=== PATIENT | male | born 1935 | race Caucasian/White ===

== ENCOUNTER 2018-01-05 11:02 | Day surgery (SDC) | payer MEDICARE, OTHER ==
[2018-01-05] MEDS ORDERED: Sodium Chloride 0.9% 10 ML Syringe FLUSH PRN (11:15)
[2018-01-05] MEDS ORDERED: Lactated Ringers 1,000 ML IV SCH (11:15)
[2018-01-05] MEDS ORDERED: Midazolam 1 MG/ML 2 ML SDV ONE ×2 (13:06→13:11)
[2018-01-05] MEDS ORDERED: Propofol 200 MG/20 ML SDV ONE ×2 (13:07→13:11)
--- NOTE | 2018-01-05 13:08 | PCM.PN ---
- General Info Date of Service: 01/05/18 - Review of Systems Systems Review Comment:: 82-year-old male with history of colon polyps referred for surveillance colonoscopy. He states his bowels have been working well recently.He denies any recent rectal bleeding or change in bowel pattern. He is medically stable to proceed today. His recent history and physical is reviewed and no significant changes are noted. I discussed the proposed colonoscopy with the patient. He understands indicationsand agrees to proceed accepting risks. - Patient Data Vitals - Most Recent: Last Vital Signs Temp 97.9 F 01/05/18 11:57 Pulse 68 01/05/18 11:57 Resp 20 01/05/18 11:57 BP 162/76 H 01/05/18 11:57 Pulse Ox 96 01/05/18 11:57 Weight - Most Recent: 88.451 kg Lab Results Last 24 Hours: Laboratory Results - last 24 hr 01/05/18 Range/Units 11:52 POC Glucose 161 H (65-110) mg/dl Med Orders - Current: Current Medications Lactated Ringer's (Ringers, Lactated) 1,000 mls @ 125 mls/hr IV ASDIRECTED JULIO Last Admin: 01/05/18 12:19 Dose: 125 mls/hr Sodium Chloride (Saline Flush) 10 ml FLUSH ASDIRECTED PRN PRN Reason: Keep Vein Open - Problem List Review Problem List Initiated/Reviewed/Updated: Yes - My Orders Last 24 Hours: My Active Orders 01/05/18 11:15 Patient Status [ADT] Routine Blood Glucose Check, Bedside [RC] ONETIME Peripheral IV Care [RC] . DIRECTED Verify Patient Consent Obtain [RC] ASDIRECTED Lactated Ringers [Ringers, Lactated] 1,000 ml IV ASDIRECTED Sodium Chloride 0.9% [Saline Flush] 10 ml FLUSH ASDIRECTED PRN Peripheral IV Insertion Adult [OM.PC] Routine - Assessment Assessment:: history of colon polyps - Plan Plan:: Colonoscopy
--- NOTE | 2018-01-05 13:51 | PCM.OPNOTE ---
- General Post-Op/Procedure Note Date of Surgery/Procedure: 01/05/18 Operative Procedure(s): Colonoscopy with Polypectomy Findings: Small right sided colon polyps Moderate Sigmoid Diverticulosis Moderate sized hemorrhoids Pre Op Diagnosis: History of colon polyps Post-Op Diagnosis: Colon Polyps. Diverticulosis. Hemorrhoids Anesthesia Technique: MAC Primary Surgeon: Natalio Corbin Pathology: Colon Polyps Output, Urine Amount: 0 EBL in mLs: 0 Complications: None Condition: Good Free Text/Narrative:: Intake & Output 01/04/18 01/05/18 01/05/18 22:59 06:59 14:59 Intake Total 600 Balance 600
[2018-01-05 17:46] VITALS: BP 135/65
--- NOTE | 2018-01-06 07:45 | OR ---
Date of Procedure: 01/05/2018 PREOPERATIVE DIAGNOSIS: History of colon polyps. POSTOPERATIVE DIAGNOSES: Colon polyps, diverticulosis, and hemorrhoids. OPERATIONS PERFORMED: Colonoscopy with polypectomy. INDICATIONS FOR SURGERY: This 82-year-old male comes for surveillance colonoscopy. He has a history of colon polyps in the past. FINDINGS: Two small polyps were noted in the right side of the colon today. There was a 6-mm semi-pedunculated polyp in the cecum and a 5-mm sessile polyp in the distal ascending colon. The patient also has a moderate degree of diverticulosis in the sigmoid colon, which does not appear to be acutely inflamed. The patient also has a [id number] size external and internal hemorrhoids noted. DESCRIPTION OF PROCEDURE: The patient was taken to the operating room. He was given intravenous sedation, and with him in the left lateral decubitus position, digital rectal exam was performed showing no rectal masses. The Olympus colonoscope was inserted into the rectum. Retroflexed examination of the rectal canal was performed. The scope was then carefully advanced under direct visualization through the entire length of the colon until the cecum was reached. Cecal acquisition was confirmed by noting the normal internal cecal anatomy and noting the light to transilluminate the abdominal wall in the right lower quadrant. In the cecum just above the ileocecal valve, the above- described polyp was identified, it was removed with a cautery snare and retrieved into a polyp trap. On withdrawal of the scope, additional cluster of 2 polyps was noted in the distal ascending colon. The one of these was removed with a cautery snare and the other was destroyed with the hyfrecator. The examination was continued and no other polyps were noted. After the colon had been completely examined and with no sign of any complication, the scope was removed and the patient was then awakened and taken from the operating room in satisfactory condition. ESTIMATED BLOOD LOSS: Zero. COMPLICATIONS: None. PROGNOSIS: Good. NINA Corbin MD /[id number]
== END 2018-01-05 15:32 | disposition home or self-care (01) ==
LOC: LL.SDS 11:02
PROVIDERS: ATTEND Surgery
DX: Z12.11 Encounter for screening for malignant neoplasm of colon (principal); D12.0 Benign neoplasm of cecum; D12.2 Benign neoplasm of ascending colon; K57.30 Diverticulosis of large intestine without perforation or abscess without bleeding; K64.8 Other hemorrhoids; K64.4 Residual hemorrhoidal skin tags; E11.42 Type 2 diabetes mellitus with diabetic polyneuropathy; I10 Essential (primary) hypertension; K21.9 Gastro-esophageal reflux disease without esophagitis; Z86.010 Personal history of colon polyps; Z87.891 Personal history of nicotine dependence; Z79.4 Long term (current) use of insulin; Z88.6 Allergy status to analgesic agent
CPT/HCPCS: 45385; 45388; 82962; J2250; J2704; J7120

== ENCOUNTER 2022-06-03 07:36 | Day surgery (SDC) | payer MEDICARE, OTHER ==
[~2022-06-03 07:36] MED LIST: Midazolam 1 MG/ML 2 ML SDV ONE; Propofol 200 MG/20 ML SDV ONE
[2022-06-03] MEDS ORDERED: Lactated Ringers 1,000 ML IV SCH (08:00)
[2022-06-03] MEDS ORDERED: Sodium Chloride 0.9% 10 ML Syringe FLUSH PRN (08:00)
[2022-06-03 10:40] VITALS: BP 160/58; PULSE 48
== END 2022-06-03 11:15 | disposition home or self-care (01) ==
LOC: LL.SDS 07:36
PROVIDERS: ATTEND Surgery
DX: Z12.11 Encounter for screening for malignant neoplasm of colon (principal); D12.2 Benign neoplasm of ascending colon; D12.0 Benign neoplasm of cecum; D12.4 Benign neoplasm of descending colon; D12.3 Benign neoplasm of transverse colon; D12.5 Benign neoplasm of sigmoid colon; K57.30 Diverticulosis of large intestine without perforation or abscess without bleeding; I10 Essential (primary) hypertension; D64.9 Anemia, unspecified; L82.1 Other seborrheic keratosis; I25.119 Atherosclerotic heart disease of native coronary artery with unspecified angina pectoris; E78.00 Pure hypercholesterolemia, unspecified; E78.1 Pure hyperglyceridemia; E11.42 Type 2 diabetes mellitus with diabetic polyneuropathy; N40.0 Benign prostatic hyperplasia without lower urinary tract symptoms; K52.9 Noninfective gastroenteritis and colitis, unspecified; Z98.890 Other specified postprocedural states; Z90.49 Acquired absence of other specified parts of digestive tract; Z87.891 Personal history of nicotine dependence; Z86.010 Personal history of colon polyps; Z87.19 Personal history of other diseases of the digestive system; Z79.4 Long term (current) use of insulin; Z88.6 Allergy status to analgesic agent; Z88.8 Allergy status to other drugs, medicaments and biological substances; Z88.5 Allergy status to narcotic agent
CPT/HCPCS: 82947; J2250; J2704; J7120

== ENCOUNTER 2024-06-08 00:16 | Emergency (ER) | payer MEDICARE, OTHER ==
[2024-06-08 00:41] LABS: BASOPHILS ABSOLUTE AUTO 0.05 K/uL (0.00-0.20); BASOPHILS PERCENT AUTO 0.8 % (0.0-2.0); EOSINOPHILS PERCENT AUTO 1.6 % (0.0-5.0); HEMATOCRIT 31.8 % (39.0-49.0); HEMOGLOBIN 10.5 g/dL (13.1-16.8); IMMATURE GRAN ABSOLUTE AUTO 0.09 10^3/uL (0.00-0.50); IMMATURE GRAN PERCENT AUTO 1.4 % (0.0-5.0); LYMPHOCYTES ABSOLUTE AUTO 1.51 K/uL (0.50-3.50); LYMPHOCYTES PERCENT AUTO 23.9 % (10.0-50.0); MEAN CORPUSCULAR HEMOGLOBIN 28.3 pg (28.2-33.3); MEAN CORPUSCULAR VOLUME 85.7 fL (84.0-98.0); MONOCYTES ABSOLUTE AUTO 0.42 K/uL (0.00-1.00); MONOCYTES PERCENT AUTO 6.6 % (2.0-14.0); NEUTROPHILS ABSOLUTE AUTO 4.16 K/uL (1.40-7.00); NEUTROPHILS PERCENT AUTO 65.7 % (45.0-80.0); PLATELET COUNT,PLT 227 K/uL (150-350); RED BLOOD CELL COUNT 3.71 M/uL (4.33-5.41); RED CELL DISTRIBUTION WIDTH 14.6 % (11.2-14.1); WHITE BLOOD CELL COUNT,WBC 6.3 K/uL (4.0-10.2)
[2024-06-08 00:51] VITALS: BP 165/56; PULSE 60
[2024-06-08 00:52] LABS: BLOOD UREA NITROGEN,BUN 43 mg/dL (7-18); CALCIUM 9.5 mg/dL (8.5-10.1); CARBON DIOXIDE,CO2 17.3 mmol/L (21.0-32.0); CHLORIDE,CL 107 mmol/L (98-107); CREATININE 1.22 mg/dL (0.51-1.17); GLUCOSE RANDOM 213 mg/dL (70-99); POTASSIUM,K 5.1 mmol/L (3.5-5.1); SODIUM,NA 139 mmol/L (136-145)
[2024-06-08 00:53] LABS: ANION GAP 19.8 meq/L (7-15); ESTIMATED GFR 57 mL/min (>=60)
== END 2024-06-08 01:54 | disposition home or self-care (01) ==
LOC: LL.ED 00:16
DX: E87.5 Hyperkalemia (principal); R79.89 Other specified abnormal findings of blood chemistry; I11.0 Hypertensive heart disease with heart failure; I50.9 Heart failure, unspecified; E78.00 Pure hypercholesterolemia, unspecified; E11.9 Type 2 diabetes mellitus without complications; Z88.8 Allergy status to other drugs, medicaments and biological substances; Z79.82 Long term (current) use of aspirin; Z79.4 Long term (current) use of insulin; Z79.899 Other long term (current) drug therapy; Z90.49 Acquired absence of other specified parts of digestive tract
CPT/HCPCS: 36415; 80048; 85025; 99284

== ENCOUNTER 2024-10-27 00:10 | Emergency (ER) | payer MEDICARE, OTHER ==
[2024-10-27 00:37] LABS: BASOPHILS ABSOLUTE AUTO 0.04 K/uL (0.00-0.20); BASOPHILS PERCENT AUTO 0.7 % (0.0-2.0); EOSINOPHILS ABSOLUTE AUTO 0.14 K/uL (0.00-0.50); EOSINOPHILS PERCENT AUTO 2.6 % (0.0-5.0); HEMATOCRIT 30.5 % (39.0-49.0); HEMOGLOBIN 10.5 g/dL (13.1-16.8); IMMATURE GRAN ABSOLUTE AUTO 0.08 10^3/uL (0.00-0.04); IMMATURE GRAN PERCENT AUTO 1.5 % (0.0-0.4); LYMPHOCYTES ABSOLUTE AUTO 1.41 K/uL (0.50-3.50); LYMPHOCYTES PERCENT AUTO 25.7 % (10.0-50.0); MEAN CORPUSCULAR HEMOGLOBIN 30.3 pg (28.2-33.3); MEAN CORPUSCULAR HGB CONC 34.4 g/dL (31.7-36.0); MEAN CORPUSCULAR VOLUME 87.9 fL (84.0-98.0); MONOCYTES ABSOLUTE AUTO 0.46 K/uL (0.00-1.00); MONOCYTES PERCENT AUTO 8.4 % (2.0-14.0); NEUTROPHILS ABSOLUTE AUTO 3.35 K/uL (1.40-7.00); NEUTROPHILS PERCENT AUTO 61.1 % (45.0-80.0); PLATELET COUNT,PLT 223 K/uL (150-350); RED BLOOD CELL COUNT 3.47 M/uL (4.33-5.41); RED CELL DISTRIBUTION WIDTH 13.6 % (11.2-14.1); WHITE BLOOD CELL COUNT,WBC 5.5 K/uL (4.0-10.2)
[2024-10-27 00:51] LABS: ALANINE AMINOTRANSFERASE,ALT 24 U/L (12-78); ALKALINE PHOSPHATASE 60 IU/L (46-116); ASPARTATE AMNIOTRANSFERASE,AST 17 U/L (15-37); BILIRUBIN TOTAL 0.3 mg/dL (0.2-1.0); BLOOD UREA NITROGEN,BUN 40 mg/dL (7-18); CALCIUM 9.3 mg/dL (8.5-10.1); CARBON DIOXIDE,CO2 17.8 mmol/L (21.0-32.0); CHLORIDE,CL 107 mmol/L (98-107); CREATININE 1.23 mg/dL (0.51-1.17); GLUCOSE RANDOM 210 mg/dL (70-99); MAGNESIUM 1.4 mg/dL (1.8-2.4); POTASSIUM,K 4.9 mmol/L (3.5-5.1); PROTEIN TOTAL,TP 7.3 g/dL (6.4-8.2); SODIUM,NA 139 mmol/L (136-145)
[2024-10-27 00:52] LABS: ANION GAP 19.1 meq/L (7-15); ESTIMATED GFR 56 mL/min (>=60)
[2024-10-27] MEDS ORDERED: Sodium Chloride 0.9% 10 ML Syringe FLUSH PRN (01:20)
[2024-10-27] MEDS: Sodium Chloride 0.9% 500 ML IV SCH (01:24)
[2024-10-27] MEDS: Magnesium Sulf/Wat 2 GM/50 mL 2 GM in Premix Bag 1 BAG IV ONE (01:24)
[2024-10-27 03:07] VITALS: BP 125/55; PULSE 70
[2024-10-27 08:17] LABS: APPEARANCE,URINE CLEAR; BILIRUBIN,URINE NEGATIVE (NEGATIVE); COLOR,URINE LIGHT YELLOW; GLUCOSE,URINE NEGATIVE (NEGATIVE); KETONES,URINE NEGATIVE (NEGATIVE); LEUKOCYTE ESTERASE,URINE NEGATIVE (NEGATIVE); NITRITE,URINE NEGATIVE (NEGATIVE); OCCULT BLOOD,URINE NEGATIVE (NEGATIVE); PH,URINE 5.5 (5.0-9.0); PROTEIN,URINE NEGATIVE (NEGATIVE); UROBILINOGEN,URINE 0.2 E.U./dL (0.2-1.0)
== END 2024-10-27 03:35 | disposition home or self-care (01) ==
LOC: LL.ED 00:10
DX: E83.42 Hypomagnesemia (principal); I10 Essential (primary) hypertension; E78.00 Pure hypercholesterolemia, unspecified; K21.9 Gastro-esophageal reflux disease without esophagitis; E11.42 Type 2 diabetes mellitus with diabetic polyneuropathy; Z90.49 Acquired absence of other specified parts of digestive tract; Z88.8 Allergy status to other drugs, medicaments and biological substances; Z79.4 Long term (current) use of insulin; Z79.82 Long term (current) use of aspirin; Z79.899 Other long term (current) drug therapy
CPT/HCPCS: 36415; 80053; 81003; 83735; 85025; 96365; 96366; 99284; 99284-25; J3475; J7040